=== PATIENT | male | born 1980 | race Caucasian/White ===

== ENCOUNTER 2019-04-22 20:43 | Emergency (ER) | payer OTHER ==
[2019-04-22] MEDS ORDERED: Ibuprofen TAB* 600 MG PO ONE (20:57)
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
[2019-04-22 21:50] VITALS: BP 0/0
== END 2019-04-22 21:40 | disposition home or self-care (01) ==
LOC: ED 20:43
DX: S02.2XXA Fracture of nasal bones, initial encounter for closed fracture (principal); Y04.2XXA Assault by strike against or bumped into by another person, initial encounter; Y93.89 Activity, other specified; Y92.9 Unspecified place or not applicable; Y99.0 Civilian activity done for income or pay; Z87.891 Personal history of nicotine dependence
CPT/HCPCS: 70160; 99282; A9270-GY